=== PATIENT | female | born 1960 | race Caucasian/White ===

== ENCOUNTER 2018-08-25 17:03 | Emergency (ER) | payer BC ==
--- NOTE | 2018-08-25 17:18 | Emergency Department Record ---
History of Present Illness - General Chief Complaint: Fall Injury Stated Complaint: FALL INJURY Time Seen by Provider: 08/25/18 17:12 Source: Patient Mode of Arrival: Ambulatory Limitations: No limitations - History of Present Illness Initial Comments: 58 y female presents with left wrist pain. She fell in her parent's shower at 3:15pm. The towel rack had come off the wall. She was trying to replace it and fell forward. No other complaints of pain or injury. No headache, neck pain, chest pain, abdominal pain or other injuries. She is left handed. She has pain with use and palpation distally. MD Complaint: Fall -: Hour(s) (2) Fall From: Standing When Fall Occurred: 1-3 hours [employer] Fall Witnessed: No Place Fall Occurred: Home (Parents home) Loss of Consciousness: None Prolonged Down Time?: No Symptoms Prior to Fall: None Location - Extremities: Left: Forearm (Wrist) Severity: Moderate Quality: Aching Context: Other Associated Symptoms: Denies - Kleber Coma Scale Eye Response: (4) Open spontaneously Motor Response: (6) Obeys commands Verbal Response: (5) Oriented Mayo Total: 15 - Related Data Previous Rx's Medication Instructions Recorded Hydrocodone/Acetaminophen [[place] 1 each PO Q6H #12 tablet 08/25/18 5-325 Tablet] Allergies Allergy/AdvReac Type Severity Reaction Status Date / Time bee venom protein (honey bee) Allergy HIVES Verified 08/25/18 17:30 paclitaxel [From Taxol] Allergy RASH Verified 08/25/18 17:30 Review of Systems Constitutional: Denies: Chills, Fever, Malaise, Weakness Eyes: Denies: Eye discharge, Eye pain, Photophobia, Vision change ENT: Denies: Congestion, Throat pain Respiratory: Denies: Cough, Dyspnea Cardiovascular: Denies: Chest pain, Palpitations, Syncope Endocrine: Denies: Fatigue, Polydipsia, Polyuria Gastrointestinal: Denies: Abdominal pain, Diarrhea, Nausea, Vomiting Genitourinary: Denies: Dysuria, Hematuria Musculoskeletal: Reports: As per HPI, Arthralgia, Joint swelling. Denies: Back pain Skin: Denies: Bruising, Change in color, Rash Neurological: Denies: Headache, Numbness, Weakness Psychiatric: Denies: Anxiety Hematological/Lymphatic: Denies: Easy bleeding, Easy bruising Past Medical History - SOCIAL HISTORY Smoking Status: Never smoker - RESPIRATORY Hx Respiratory Disorders: No - CARDIOVASCULAR Hx Cardio Disorders: No - NEURO Hx Neuro Disorders: No - GI Hx GI Disorders: No - Hx Genitourinary Disorders: No - ENDOCRINE Hx Endocrine Disorders: No - MUSCULOSKELETAL Hx Musculoskeletal Disorders: No - PSYCH Hx Psych Problems: No - HEMATOLOGY/ONCOLOGY Hx Hematology/Oncology Disorders: No Physical Exam - General General Appearance: Alert, Oriented x3, Cooperative, No acute distress Limitations: No limitations - Head Head exam: Normocephalic. negative: Normal inspection Head exam detail: Abrasion (very faint superficial right forehead abrasion, non tender). negative: Contusion, General tenderness, Hematoma, Laceration - Eye Eye exam: Normal appearance, PERRL. negative: Conjunctival injection, Scleral icterus - ENT ENT exam: Normal exam Ear exam: Normal external inspection Nasal Exam: Normal inspection Mouth exam: Normal external inspection - Neck Neck exam: Normal inspection, Full ROM. negative: Tenderness - Respiratory Respiratory exam: Normal lung sounds bilaterally. negative: Respiratory distress, Rhonchi, Stridor, Wheezes - Cardiovascular Cardiovascular Exam: Regular rate, Normal rhythm, Normal heart sounds Peripheral Pulses: 2+: Radial (L) - GI/Abdominal GI/Abdominal exam: Soft. negative: Distended, Guarding, Tenderness - Rectal Rectal exam: Deferred - exam: Deferred - Extremities Extremities exam: Joint swelling, Normal capillary refill, Tenderness Image of Hand: 1 - mild swelling, intact skin, tender distal radius, tender distal ulna, no step off or obvious deformity - Back Back exam: Denies: CVA tenderness (R), CVA tenderness (L) - Neurological Neurological exam: Alert, Oriented X3 - Psychiatric Psychiatric exam: Normal affect, Normal mood. negative: Agitated, Anxious - Skin Skin exam: Dry, Intact, Normal color, Warm Course - Reevaluation(s) Reevaluation #1: 08/25/18 17:35 XR demonstrated a mildly comminuted, non displaced distal radius fracture. 08/25/18 17:50 The patient was prescribed a controlled substance. The prescription does not exceed three days. MAPS was reviewed at the time of the prescripts The topics of abuse, addiction, over dose, dangers of multiple medications, disposal, and illegal distribution were discussed with the patient. The patient verbalized understanding of the risks of the medication being provided She was checked after the splint. It is in good alignment and comfortable. Referral was made to the ortho specialty clinic Disposition Disposition: Discharge Clinical Impression: Radius fracture Qualifiers: Encounter type: initial encounter Radius location: distal Fracture type: closed Fracture morphology: other fracture Laterality: left Qualified Code(s): S52.592A - Other fractures of lower end of left radius, initial encounter for closed fracture Disposition: Home, Self-Care Condition: (1) Good Instructions: Wrist Fracture in Adults (ED) Additional Instructions: Use the splint for support and comfort. Don not remove Return if you have any concerns with the comfort of the splint You have been referred to the orthopedic specialty clinic for follow up the wrist fracture Avoid lifting with the left side Prescriptions: Hydrocodone/Acetaminophen [[place] 5-325 Tablet] 1 each PO Q6H #12 tablet Referrals: Frederick Bentley [DOCTOR OF OSTEOPATH] - [facility] Specialty Clinics [Provider Group] Forms: Patient Portal Access Time of Disposition: 17:36 Quality - Quality Measures Quality Measures: N/A - Blood Pressure Screening Does Patient Have Any of the Following: No Blood Pressure Classification: Pre-Hypertensive BP Reading Systolic Measurement: 122 Diastolic Measurement: 64 Screening for High Blood Pressure: < Pre-Hypertensive BP, F/U Documented > [G8950] Pre-Hypertensive Follow-up Interventions: Referral to alternative/primary care provider.
--- NOTE | 2018-08-28 12:53 | RADIOLOGY REPORT ---
EXAM: LEFT WRIST HISTORY: LEFT WRIST/FOREARM PAIN STATUS POST FALL TODAY. TECHNIQUE: Three views of the left wrist were obtained. Comparison: None. FINDINGS: There is a mildly comminuted nondisplaced fracture of the distal radial metaphysis. There is no significant angulation. There is no visible extension to the distal articular surface on these images. The remaining osseous and articular structures appear intact. IMPRESSION: MILDLY COMMINUTED NONDISPLACED FRACTURE OF THE DISTAL RADIAL METAPHYSIS WITH NO ANGULATION. JOB NUMBER: [id number] MTDD
== END 2018-08-25 18:04 | disposition home or self-care (01) ==
LOC: ER 17:03
DX: S52.592A Other fractures of lower end of left radius, initial encounter for closed fracture (principal); S00.81XA Abrasion of other part of head, initial encounter; W18.2XXA Fall in (into) shower or empty bathtub, initial encounter; Y93.E1 Activity, personal bathing and showering; Y92.002 Bathroom of unspecified non-institutional (private) residence as the place of occurrence of the external cause
CPT/HCPCS: 99283; 99284

== ENCOUNTER 2018-10-16 13:28 | Emergency (ER) | payer BC ==
[2018-10-16] MEDS ORDERED: Diph,Pert(Acell),Tet Vac 0.5 ML SYR IM ONE (13:48)
--- NOTE | 2018-10-16 13:50 | Emergency Department Record ---
History of Present Illness - General Chief Complaint: Animal Bite Stated Complaint: DOG BITE LT FOREARM Time Seen by Provider: 10/16/18 13:48 Source: Patient Mode of Arrival: Ambulatory Limitations: No limitations - History of Present Illness Initial Comments: Pt presents 13 days after being bit by her family pet. Pt states the dog was 13.5 years old and had fallen into the sump pump well and she was lifting him out and he bit her right, non dominate, arm. The dog was scared and bit her. There is no hx of prior acting out by the animal. The dog had been immunized for rabies in the past with last in 2013. The wound is healing well without drainage or erythema. She did not seek medical attention at the time of the bite. Since then she has become concerned that there may be rabies concern. 7 days after the bite the dog dies peacefully at home. There was no change in behavior prior to . Onset/Timin -: Week(s) Animal: Dog Description: Household pet Mechanism: Bite Context: Other Treatments Prior to Arrival: Wound dressing(s) - Related Data Patient Tetanus UTD (within 5 yrs): No Previous Rx's Medication Instructions Recorded Hydrocodone/Acetaminophen [[place] 1 each PO Q6H #12 tablet 08/25/18 5-325 Tablet] Allergies Allergy/AdvReac Type Severity Reaction Status Date / Time bee venom protein (honey bee) Allergy HIVES Verified 10/16/18 13:50 paclitaxel [From Taxol] Allergy RASH Verified 10/16/18 13:50 Travel Screening - Travel/Exposure Within Last 30 Days Have you traveled within the last 30 days?: No Review of Systems Constitutional: Denies: Chills, Fever, Weakness Eyes: Denies: Eye discharge ENT: Denies: Congestion Respiratory: Denies: Cough, Hemoptysis Cardiovascular: Denies: Arrhythmia, Syncope Endocrine: Denies: Fatigue Gastrointestinal: Denies: Abdominal pain, Diarrhea, Nausea, Vomiting Musculoskeletal: Denies: Arthralgia, Back pain Skin: Reports: As per HPI. Denies: Rash Neurological: Denies: Seizure, Tingling, Tremors Psychiatric: Denies: Suicidal thoughts Hematological/Lymphatic: Denies: Anemia Past Medical History - SOCIAL HISTORY Smoking Status: Never smoker Alcohol Use: None Drug Use: None - RESPIRATORY Hx Respiratory Disorders: No - CARDIOVASCULAR Hx Cardio Disorders: No - NEURO Hx Neuro Disorders: No - GI Hx GI Disorders: No - Hx Genitourinary Disorders: No - ENDOCRINE Hx Endocrine Disorders: No - MUSCULOSKELETAL Hx Musculoskeletal Disorders: No - PSYCH Hx Psych Problems: No - HEMATOLOGY/ONCOLOGY Hx Hematology/Oncology Disorders: No Hx Cancer: Yes (uterine with METS to abd) Family Medical History Any Significant Family History?: No Physical Exam - General General Appearance: Alert, Oriented x3, Cooperative, No acute distress, Anxious - Head Head exam: Atraumatic - Eye Eye exam: PERRL, EOMI - ENT ENT exam: Mucous membranes moist Nasal Exam: Normal inspection Mouth exam: Normal external inspection - Neck Neck exam: Normal inspection, Full ROM. negative: Tenderness - Respiratory Respiratory exam: Normal lung sounds bilaterally. negative: Respiratory distress - Cardiovascular Cardiovascular Exam: Regular rate, Normal rhythm, Normal heart sounds - GI/Abdominal GI/Abdominal exam: Soft, Normal bowel sounds. negative: Tenderness - Extremities Extremities exam: Normal inspection (right forearm with 4 superficial healing puncture wounds without signs of infection. ) - Neurological Neurological exam: Alert, Normal gait, Oriented X3 - Psychiatric Psychiatric exam: Anxious, Normal affect, Normal mood - Skin Skin exam: Normal color (dog bite as noted above - healing without infection. ) Course Vital Signs 10/16/18 13:35 Temperature 98.5 F Pulse Rate 86 Respiratory 18 Rate Blood Pressure 136/80 Pulse Ox 95 - Reevaluation(s) Reevaluation #1: 10/16/18 13:56 Pt anxious about bite from family pet that had been immunized. Would is 13 days old and healing well. No evidence of rabies symptoms in animal. Reassured and Tetanus updated at pt request. I have tried to reassure her but she is very anxios. At this time there is no medical indication for Rabies prophylaxis in this patient. Disposition Disposition: Discharge Clinical Impression: Dog bite of right arm Qualifiers: Encounter type: initial encounter Qualified Code(s): S41.151A - Open bite of right upper arm, initial encounter Disposition: Home, Self-Care Condition: (1) Good Instructions: Animal Bite (ED) Additional Instructions: There is NO INDICATION for Rabies treatment. Follow up with your doctor as needed. Continue local care to site. Return to the ED as needed. Forms: Patient Portal Access Time of Disposition: 13:50 Quality - Quality Measures Quality Measures: N/A - Blood Pressure Screening Does Patient Have Any of the Following: No Blood Pressure Classification: Pre-Hypertensive BP Reading Systolic Measurement: 136 Diastolic Measurement: 80 Screening for High Blood Pressure: < Pre-Hypertensive BP, F/U Documented > [G8950] Pre-Hypertensive Follow-up Interventions: Follow-up with rescreen every year.
== END 2018-10-16 14:17 | disposition home or self-care (01) ==
LOC: ER 13:28
DX: S41.151A Open bite of right upper arm, initial encounter (principal); W54.0XXA Bitten by dog, initial encounter; Y93.89 Activity, other specified
CPT/HCPCS: 90715; 96372; 99282; 99283